=== PATIENT | female | born 1970 | race Native Hawaiian/Other Pacific Islander ===

== ENCOUNTER 2019-01-20 14:53 | Outpatient (CLI) | payer MEDICARE ==
[~2019-01-20 14:53] MED LIST: 0.9 % SODIUM CHLORIDE PF 10 ML VIAL IJ ONE; IOHEXOL 300 MG/ML BOTTLE 50 ML ONE; Lidocaine 1% 5ml 10 MG/ML VIAL ONE; methylPREDNISolone ACETATE 80 MG/ML VIAL IM ONE
== END 2019-01-20 17:00 ==
LOC: OUT 14:53
PROVIDERS: ATTEND Physical Medicine & Rehabilitation
DX: M54.16 Radiculopathy, lumbar region (principal); M48.061 Spinal stenosis, lumbar region without neurogenic claudication; M54.5 Low back pain
CPT/HCPCS: 62323; J1040